=== PATIENT | female | born 1940 | race Caucasian/White ===

== ENCOUNTER 2023-10-27 17:24 | Inpatient (IN) | payer MEDICARE, OTHER ==
[~2023-10-27] VITALS: Ht 177.8 cm; Wt 56.2 kg
[2023-10-27] MEDS ORDERED: POLY17PO4 PO (17:48)
[2023-10-27] MEDS ORDERED: MULT-1119 PO (17:48)
[2023-10-27] MEDS ORDERED: MAGN400O6 PO (17:48)
[2023-10-27] MEDS ORDERED: FOLI1TAB27 PO (17:48)
[2023-10-27] MEDS ORDERED: SENN-291 PO (17:48)
[2023-10-27] MEDS ORDERED: NA P133E RC (17:48)
[2023-10-27] MEDS ORDERED: ACET325T53 PO (17:48)
[2023-10-27] MEDS ORDERED: BISA10SU95 RC (17:48)
[2023-10-27] MEDS ORDERED: DOCU100C36 PO (17:48)
[2023-10-27] MEDS ORDERED: THIA50TA10 PO (17:48)
[2023-10-27 18:06] LABS: BASOPHILS % (AUTO) 0.6 % (0.0-2.0); EOSINOPHILS # (AUTO) 0.1 K/uL (0.0-0.7); EOSINOPHILS % (AUTO) 2.5 % (0.0-7.0); HEMATOCRIT 35.1 % (31.2-41.9); HEMOGLOBIN 11.4 g/dL (10.9-14.3); LYMPHOCYTES # (AUTO) 1.5 K/uL (0.8-4.8); LYMPHOCYTES % (AUTO) 28.2 % (20.5-51.5); MEAN CORPUSCULAR HEMOGLOBIN 30.5 uug (24.7-32.8); MEAN CORPUSCULAR HGB CONC 33 g/dL (32.3-35.6); MEAN CORPUSCULAR VOLUME 93.7 fL (75.5-95.3); MONOCYTES # (AUTO) 0.6 K/uL (0.1-1.30); MONOCYTES % (AUTO) 12.4 % (0.0-11.0); NEUTROPHILS % (AUTO) 56.3 % (38.5-71.5); PLATELET COUNT (AUTO) 187 K/uL (179-408); RED BLOOD CELL COUNT(AUTO) 3.75 MIL/uL (3.63-4.92); RED CELL DISTRIBUTION WIDTH 13.8 % (12.3-17.7); WHITE BLOOD COUNT (AUTO) 5.2 K/uL (3.8-11.8)
[2023-10-27 18:12] LABS: CALCIUM 9.1 mg/dL (8.5-10.1); CARBON DIOXIDE 27 mmol/L (21-32); CHLORIDE 111 mmol/L (98-107); CREATININE 0.8 mg/dL (0.6-1.3); GLUCOSE 94 mg/dL (74-106); SODIUM SERUM 146 mmol/L (136-145); UREA NITROGEN, BLOOD 27 mg/dL (7-18)
[2023-10-27 18:14] LABS: DIFFERENTIAL COMMENT 1
[2023-10-27 18:15] LABS: AMMONIA 30 umol/L (11-32)
[2023-10-27 18:26] LABS: ACETAMINOPHEN < 2.0 ug/mL (10-30); ALANINE AMINOTRANSFERASE 14 U/L (14-59); ALBUMIN 3.5 g/dL (3.4-5.0); ALKALINE PHOSPHATASE 94 U/L (50-136); ASPARTATE AMINOTRANSFERASE 6 U/L (15-37); BILIRUBIN,DIRECT 0.2 mg/dL (0.0-0.2); BILIRUBIN,TOTAL 0.9 mg/dL (0.2-1.0); TOTAL PROTEIN, SERUM 6.5 g/dL (6.4-8.2)
[2023-10-27 18:35] LABS: ETHANOL < 3 MG/DL (0-10)
[2023-10-27 18:43] LABS: THYROID STIMULATING HORMONE 0.685 mIU/mL (0.358-3.740)
[2023-10-27] MEDS: IV NORMAL SALINE 500 ML BAG IV ONE (18:45)
[2023-10-27 23:30] VITALS: BP 144/72; TEMP 97.8; O2SAT 98
[2023-10-28] MEDS ORDERED: ACETAMINOPHEN 325 MG TABLET PO PRN
[2023-10-28] MEDS ORDERED: QUETIAPINE FUMARATE 25 MG TABLET PO PRN
[2023-10-28] MEDS ORDERED: MAG HYDROX/AL HYDROX/SIMETH 30 ML LIQUID UDC PO PRN
[2023-10-28 08:23] VITALS: BP 147/60; TEMP 97.9; O2SAT 98
[2023-10-28] MEDS ORDERED: BISACODYL 10 MG SUPP.RECT RC PRN (13:45)
[2023-10-28] MEDS ORDERED: SENNOSIDES/DOCUSATE SODIUM TABLET PO PRN (13:45)
[2023-10-28] MEDS ORDERED: MIRALAX 17 GM POWD.PACK PO PRN (13:45)
[2023-10-28] MEDS: DIVALPROEX 125 MG TABLET.DR PO SCH (14:43)
[2023-10-28 16:06] VITALS: BP 124/90; TEMP 97.9; O2SAT 98
[2023-10-28] MEDS: DOCUSATE SODIUM 100 MG CAPSULE PO SCH (16:51)
[2023-10-28] MEDS: ENSURE ENLIVE (VAN) 240 ML LIQUID PO SCH (16:52)
[2023-10-28 20:00] VITALS: BP 150/61; TEMP 97.5; O2SAT 99
[2023-10-28] MEDS: risperiDONE 0.25 MG TABLET PO SCH (20:11)
[2023-10-28] MEDS: ZOLPIDEM 5 MG TABLET PO PRN (21:11)
[2023-10-29] MEDS: risperiDONE-M 0.5 MG TAB.RAPDIS PO PRN (04:21)
[2023-10-29 08:37] VITALS: BP 93/71; TEMP 97.7; O2SAT 98
[2023-10-29] MEDS: FOLIC ACID 1 MG TABLET PO SCH (08:37)
[2023-10-29] MEDS: THIAMINE HCL 100 MG TABLET PO SCH (08:37)
[2023-10-29] MEDS: MULTIVITAMINS,THERAPEUTIC TABLET PO SCH (08:37)
[2023-10-29] MEDS ORDERED: Medication Not On Formulary EA (Multivitamin (Multi Vitamin Daily) 1 TAB) PO SCH (09:00)
[2023-10-29] MEDS ORDERED: Medication Not On Formulary EA (Thiamine Hcl (Vitamin B-1) 100 MG) PO SCH (09:00)
[2023-10-29 16:25] VITALS: BP 147/55; TEMP 97.8; O2SAT 98
[2023-10-29 19:58] VITALS: BP 100/56; TEMP 98; O2SAT 100
[2023-10-29] MEDS: risperiDONE 0.25 MG TABLET PO SCH (20:53)
[2023-10-30 07:53] VITALS: BP 155/51; TEMP 98.2; O2SAT 98
[2023-10-30 09:38] LABS: ALANINE AMINOTRANSFERASE 19 U/L (14-59); ALBUMIN 4.1 g/dL (3.4-5.0); ALKALINE PHOSPHATASE 99 U/L (50-136); ASPARTATE AMINOTRANSFERASE 7 U/L (15-37); CALCIUM 9.3 mg/dL (8.5-10.1); CARBON DIOXIDE 30 mmol/L (21-32); CHLORIDE 107 mmol/L (98-107); CREATININE 0.7 mg/dL (0.6-1.3); GLUCOSE 93 mg/dL (74-106); POTASSIUM 3.7 mmol/L (3.5-5.1); SODIUM SERUM 145 mmol/L (136-145); TOTAL PROTEIN, SERUM 7.4 g/dL (6.4-8.2); UREA NITROGEN, BLOOD 21 mg/dL (7-18)
[2023-10-30] MEDS: DIVALPROEX 250 MG TABLET.DR PO SCH (13:36)
[2023-10-30] MEDS ORDERED: DIVALPROEX 125 MG TABLET.DR PO SCH (14:00)
[2023-10-30 20:00] VITALS: BP 119/56
[2023-10-30] MEDS: risperiDONE 1 MG TABLET PO SCH (20:25)
[2023-10-30] MEDS ORDERED: risperiDONE 0.25 MG TABLET PO SCH (21:00)
[2023-10-31 07:30] VITALS: BP 123/49; TEMP 98; O2SAT 98
[2023-10-31] MEDS: risperiDONE 0.5 MG TABLET PO SCH (08:45)
[2023-10-31] MEDS ORDERED: risperiDONE 0.25 MG TABLET PO SCH (09:00)
[2023-10-31 15:13] VITALS: BP 104/56; TEMP 98; O2SAT 98
[2023-10-31 20:00] VITALS: BP 116/65; TEMP 97.7; O2SAT 99
[2023-10-31] MEDS: ATORVASTATIN 10 MG TABLET PO SCH (21:31)
[2023-11-01 07:56] VITALS: BP 116/67; TEMP 98; O2SAT 98
[2023-11-01] MEDS: ASPIRIN EC 81 MG TABLET.DR PO SCH (08:52)
[2023-11-01 15:47] VITALS: BP 122/69; TEMP 98; O2SAT 98
[2023-11-01 20:00] VITALS: BP 140/51; TEMP 97.9; O2SAT 100
[2023-11-02 08:00] VITALS: BP 136/62; TEMP 98.2; O2SAT 99
[2023-11-02 19:48] VITALS: BP 124/66; TEMP 98.1; O2SAT 96
[2023-11-03 07:47] VITALS: BP 136/69; TEMP 98.4; O2SAT 98
[2023-11-03 15:37] VITALS: BP 131/60; TEMP 98; O2SAT 98
[2023-11-03 20:19] VITALS: BP 134/64; TEMP 98.2; O2SAT 96
[2023-11-04 07:48] VITALS: BP 118/50; TEMP 98; O2SAT 98
[2023-11-04 16:12] VITALS: BP 123/71; TEMP 98.1; O2SAT 98
[2023-11-04 19:56] VITALS: BP 116/64; TEMP 98.1; O2SAT 96
[2023-11-04] MEDS: risperiDONE 1 MG TABLET PO SCH (20:21)
[2023-11-05 07:50] VITALS: BP 120/53; TEMP 98.3; O2SAT 98
[2023-11-05] MEDS: risperiDONE 0.5 MG TABLET PO SCH (08:37)
[2023-11-05] MEDS ORDERED: risperiDONE-M 0.5 MG TAB.RAPDIS PO PRN (12:45)
[2023-11-05] MEDS: RISPERIDONE-M 0.25 MG TAB.RAPDIS PO PRN (13:21)
[2023-11-05] MEDS: DIVALPROEX 125 MG TABLET.DR PO SCH (13:21)
[2023-11-05] MEDS: DIVALPROEX 250 MG TABLET.DR PO SCH (13:21)
[2023-11-05 16:38] VITALS: BP 139/56; TEMP 98.1; O2SAT 98
[2023-11-05] MEDS: MAGNESIUM HYDROXIDE 30 ML LIQUID UDC PO PRN (18:15)
[2023-11-05 20:11] VITALS: BP 123/50; TEMP 98.2; O2SAT 98
[2023-11-06 07:47] VITALS: BP 137/60; TEMP 98.3; O2SAT 97
[2023-11-06 15:51] VITALS: BP 131/54; TEMP 98; O2SAT 97
[2023-11-06 19:53] VITALS: BP 130/62; TEMP 97.9; O2SAT 96
[2023-11-07 08:25] VITALS: BP 142/51; TEMP 98; O2SAT 99
[2023-11-07 15:24] VITALS: BP 136/59; TEMP 98; O2SAT 99
[2023-11-07 20:13] VITALS: BP 140/56; TEMP 98.1; O2SAT 98
[2023-11-07] MEDS: risperiDONE 2 MG TABLET PO SCH (20:48)
[2023-11-07] MEDS ORDERED: risperiDONE 1 MG TABLET PO SCH (21:00)
[2023-11-08 07:48] VITALS: BP 127/45; TEMP 98.2; O2SAT 98
[2023-11-08 15:15] VITALS: BP 131/61; TEMP 98; O2SAT 98
[2023-11-08 20:09] VITALS: BP 124/70; TEMP 98.1; O2SAT 96
[2023-11-09 07:42] VITALS: BP 124/44; TEMP 97.8; O2SAT 97
== END 2023-11-09 11:30 | DRG 885 ==
LOC: ER 17:25 → GPS 23:04
PROVIDERS: ADMIT Psychiatry & Neurology Psychiatry; ATTEND Internal Medicine
DX: F31.9 Bipolar disorder, unspecified (principal); F03.93 Unspecified dementia, unspecified severity, with mood disturbance; F03.92 Unspecified dementia, unspecified severity, with psychotic disturbance; E87.0 Hyperosmolality and hypernatremia; Z68.1 Body mass index [BMI] 19.9 or less, adult; F03.94 Unspecified dementia, unspecified severity, with anxiety; F10.21 Alcohol dependence, in remission; Z87.891 Personal history of nicotine dependence; R79.89 Other specified abnormal findings of blood chemistry; R62.7 Adult failure to thrive; Z87.440 Personal history of urinary (tract) infections; Z79.899 Other long term (current) drug therapy; E78.5 Hyperlipidemia, unspecified; Z86.73 Personal history of transient ischemic attack (TIA), and cerebral infarction without residual deficits; R13.10 Dysphagia, unspecified; Y90.0 Blood alcohol level of less than 20 mg/100 ml
CPT/HCPCS: 36415; 70450; 71045; 80164; 83605; 84443; 84484; 85025; 85730; 87040; 93005; G0480; J3490; J7040